=== PATIENT | female | born 1965 ===

== ENCOUNTER 2016-05-31 20:02 | Emergency (ER) | payer MEDICAID ==
[2016-05-31 20:10] VITALS: BP 127/76; PULSE 79; RESP 16; TEMP 97.7; O2SAT 99
--- NOTE | 2016-05-31 20:48 | ED PDOC ---
HPI: CCC, URI, Sore Throat Time Seen by Provider: 05/31/16 20:20 Chief Complaint (Nursing): ENT Problem Chief Complaint (Provider): Sore Throat History Per: Patient, Family, [employer] Manager Have you had recent travel within the past 21 days to any of the following countries: [place], [place], [place] or [place]?: No Onset/Duration Of Symptoms: Days (since yesterday) Current Symptoms Are (Timing): Still Present Associated Symptoms: denies: Cough, Sinus Drainage, Other (no neck pain, headache, dizziness) Ear Symptoms: Bilateral: None Severity: Moderate Additional Complaint(s): Brijesh Ascencio is a 51 year old female, with no pertinent past medical history , who presents to the ED on 05/31/16, accompanied by a family member, for the evaluation of a moderately sore throat that she has experienced since yesterday. [employer] Flight Attendant/Inflight Manager Emerita King (#[id number]) assisted with communication. Patient reports having felt as if there are 2 areas of "swelling " on her neck but otherwise denies fever, chills, ear pain, rhinorrhea, cough, chest pain, shortness of breath, headache or dizziness. No recent travel, though recent sick contacts include her son. PMD: Clinic in [place] Past Medical History Reviewed: Historical Data, Nursing Documentation, Vital Signs Vital Signs: Last Vital Signs Temp 97.7 F 05/31/16 20:07 Pulse 79 05/31/16 20:07 Resp 16 05/31/16 20:07 BP 127/76 05/31/16 20:07 Pulse Ox 99 06/01/16 00:07 - Medical History PMH: Sleep Apnea - Surgical History Surgical History: No Surg Hx - Family History Family History: States: Unknown Family Hx - Living Arrangements Living Arrangements: With Family - Social History Current smoker - smoking cessation education provided: No Alcohol: None Drugs: Denies - Home Medications Home Medications: Ambulatory Orders Medication Instructions Recorded Azithromycin [Zithromax] 250 mg PO DAILY #6 tab 05/31/16 Ibuprofen [Motrin] 600 mg PO TID PRN #30 tab 05/31/16 Prednisone 50 mg PO DAILY #5 tablet 05/31/16 - Allergies Allergies/Adverse Reactions: Allergies Allergy/AdvReac Type Severity Reaction Status Date / Time No Known Allergies Allergy Verified 05/31/16 21:01 Review of Systems Constitutional: Negative for: Fever, Chills ENT: Positive for: Throat Pain, Other (2 areas of "swelling" on neck). Negative for: Ear Pain, Nose Discharge Cardiovascular: Negative for: Chest Pain Respiratory: Negative for: Cough, Shortness of Breath Physical Exam - Reviewed Nursing Documentation Reviewed: Yes Vital Signs Reviewed: Yes - Physical Exam Appears: Positive for: Non-toxic, No Acute Distress Head Exam: Positive for: ATRAUMATIC, NORMOCEPHALIC Skin: Positive for: Normal Color, Warm, Dry Eye Exam: Positive for: Normal appearance, PERRL ENT: Positive for: Pharyngeal Erythema. Negative for: Tonsillar Exudate, Tonsillar Swelling Cardiovascular/Chest: Positive for: Regular Rate, Rhythm. Negative for: Murmur Respiratory: Positive for: Normal Breath Sounds. Negative for: Respiratory Distress Lymphatic: Negative for: Adenopathy (no anterior cervical lymphadenopathy) Neurologic/Psych: Positive for: Alert, Oriented - ECG O2 Sat by Pulse Oximetry: 99 (RA) Pulse Ox Interpretation: Normal Medical Decision Making Medical Decision Makin:20 Initial Impression: laryngitis; will r/o strep Initial Plan: * Rapid Strep Patient is medically stable and requires no further treatment in the ED at this time. Patient will be discharged home with Rx for a Zpak and Prednisone, the latter of which she was advised to begin tomorrow. Counseling was provided and all questions were answered regarding diagnosis and need for follow up with her PMD. There is agreement to discharge plan. Return if symptoms persist or worsen. Clinical Impression: laryngitis Scribe Attestation: Documented by Mirian Levine, acting as a scribe for Jose Juarez PA-C. Provider Scribe Attestation: All medical record entries made by the Scribe were at my direction and personally dictated by me. I have reviewed the chart and agree that the record accurately reflects my personal performance of the history, physical exam, medical decision making, and the department course for this patient. I have also personally directed, reviewed, and agree with the discharge instructions and disposition. negative strep will treat for pharyngitis/laryngitis. daughter will supervisor picking crew medications tonight all questions answered. stable for discharge. follow up information discussed. Disposition - Clinical Impression Clinical Impression: Laryngitis, Acute pharyngitis - Patient ED Disposition Is Patient to be Admitted: No Counseled Patient/Family Regarding: Studies Performed, Diagnosis, Need For Followup, Rx Given - Disposition Referrals: [facility] [Outside] Disposition: Routine/Home Disposition Time: 21:44 Condition: STABLE Additional Instructions: lots of fluids to stay well hydrated follow up with clinic or primary doctor without fail return for any new concerns including high fevers, inability to swallow Prescriptions: Ibuprofen [Motrin] 600 mg PO TID PRN #30 tab PRN Reason: Other Prednisone 50 mg PO DAILY #5 tablet Azithromycin [Zithromax] 250 mg PO DAILY #6 tab Instructions: Pharyngitis (ED), Laryngitis (ED) Print Language: PRYDEINIG
== END 2016-05-31 21:44 | disposition home or self-care (01) ==
LOC: H.ER 20:02
DX: J02.9 Acute pharyngitis, unspecified (principal); J04.0 Acute laryngitis